=== PATIENT | female | born 1975 | race African-American/Black ===

== ENCOUNTER 2020-02-12 01:42 | Day surgery (SDC) | payer OTHER, SELFPAY ==
[2020-02-02 13:53] VITALS: BMI 34.2
[2020-02-12] VITALS (9 sets, daily range): BP systolic 103–140; BP diastolic 64–82; PULSE 65–77; RESP 14–20; TEMP 36.2–36.5; O2SAT 95–100
--- NOTE | 2020-02-12 06:02 | ECG_ITS ---
Measurements Intervals [place] Rate: 59 P: 58 AR: 163 QRS: -4 QRSD: 91 T: 13 QT: 401 QTc: 398 Interpretive Statements SINUS BRADYCARDIA POSSIBLE LEFT ATRIAL ENLARGEMENT DELAYED PRECORDIAL R/S TRANSITION BORDERLINE ECG Electronically Signed On 02-12-2020 9:52:22 CDT by Javon Curry D.O.
[2020-02-12] MEDS: LACTATED RINGERS 500 ML IV CONT (09:00)
[2020-02-12 09:41] LABS: Urine Cotinine NEGATIVE
--- NOTE | 2020-02-12 09:51 | WPDANESEPPF ---
Anes - Initial Pre Proc Eval Procedure: Operation Date: 02/12/20 10:30 Proposed Procedures p Right Breast Reduction - Luis King MD s Left Mastopexy - Luis King MD Date/Time: 02/12/20 09:51 Surgeon: Luis King MD Pre Op Diagnosis: Breast ptosis Patient Data Age: 44 Gender: F Height: 5 ft 9 in Weight: 102.4 kg Last Vital Signs Temp 97.1 F L 02/12/20 08:34 Pulse 65 02/12/20 08:34 Resp 18 02/12/20 08:34 BP 131/82 02/12/20 08:34 Pulse Ox 100 02/12/20 08:34 Allergies Allergy/AdvReac Type Severity Reaction Status Date / Time No Known Allergies Allergy Verified 02/12/20 08:50 Home Medications Medication Instructions Recorded Confirmed Type atenolol 25 mg tablet 25 mg PO DAILY 12/22/19 02/12/20 History levothyroxine 50 mcg tablet 50 mcg PO DAILY 12/22/19 02/12/20 History norethindrone 1 mg-ethinyl 1 tablet PO DAILY 12/22/19 02/12/20 History estradiol 20 mcg (21)-iron 75 mg (7) tablet docusate sodium 100 mg capsule 100 mg PO DAILY #14 cap 02/03/20 02/12/20 Rx ondansetron HCl 4 mg tablet 4 mg PO Q8H #28 tablet 02/03/20 02/12/20 Rx hydrocodone 5 mg-acetaminophen 325 1 tablet PO Q6H PRN #15 tablet 02/04/20 02/12/20 Rx mg tablet Laboratory Tests 02/12/20 08:36 Cotinine Negative Patient hx anesthesia problems: none Family hx anesthesia problems: none PMFSH Past Medical History Medical History (Updated 02/12/20 @ 09:48 by Rio Davalos MD) Hypertension Hypothyroidism Social History Social History Smoking status: Former smoker Alcohol intake: current Gender identity (if verbalized by the patient): Female Anes - Eval Final PreProcedure Day of Procedure 02/12/20 09:51 Patient weight: overweight Heart: regular rate and rhythm Lungs: clear to auscultation Airway: Mallampati scale class II Neurological: alert and oriented Last oral intake: >/= 8 hours ASA classification: II Emergent: no Anesthetic plan: proceed Anesthesia type and monitoring: general LMA and standard monitoring Informed Consent: The patient's anesthetic plan and its attendant risks and benefits were discussed with the patient/family/POA. Questions were solicited and answers provided to the satisfaction of the patient/family/POA.
[2020-02-12] MEDS: LACTATED RINGERS 1,000 ML 30 ML IV CONT ×2 (10:00→14:02)
--- NOTE | 2020-02-12 10:25 | WPDHPUPDATE1 ---
History and Physical Update Update Date/Time: 02/12/20 10:25 History and Physical has been reviewed, including an updated exam of the patient. There are NO changes in the patient's condition. Risks, benefits, and alternatives have been discussed and questions answered. Patient agrees to proceed with procedure.
[2020-02-12] MEDS: ceFAZolin 2 GM/D5W 50 ML 2 GM/50 ML BAG IVPB (11:02)
--- NOTE | 2020-02-12 14:03 | PM.PROC ---
Procedure Note - Detailed Date of procedure: 02/12/20 Pre-op diagnosis: Breast ptosis Breast asymmetry Post-op diagnosis: same Procedure performed: 1. Right breast reduction 2. Left breast mastopexy Description of procedure: She is here today for right breast reduction /left mastopexy. Previously and again today the risks, benefits, alternatives were discussed in extensive detail. I wanted her to be very realistic about the risks involved as well as expectations. She understands she will never have symmetry given the significant asymmetry she currently has. I explained that she will still have some residual areola at specially on the left side as her areola represents a significant portion of the breast. We discussed aftercare and what to monitor for. She understands we can never guarantee final breast size and there will always be asymmetry. I was very upfront and honest about the risks of sensation change and even nipple loss (). Made sure answered all of her questions to her satisfaction today and consent was obtained. She was marked in the preoperative holding area with their verification. The patient was taken to the operating room placed supine on the operating table. Anesthesia was provided by anesthesiology. She was prepped and draped in a standard sterile fashion. A surgical time-out was taken. Stab incisions were made and I tumessed with a tumescent solution. I marked out the nipple-areolar complex at 42 mm. I then de-epithelialized the pedicle. The pedicle was well left well more than 2 cm in thickness. I then on the right removed the inferior portion of the breast as well as the central keel to get shape based on preoperative planning. On the left I simply tailor tacked. At this point copiously irrigated with saline solution and verified a strict hemostasis. I reapproximated the pillars using a 2-0 PDS as well as along the IMF. I tailor tacked the breast into place with loree. She was placed in a sitting position. I verified the nipple-areolar complex position based on preoperative markings, intraoperative measurements, and observation which were in full agreement. On the right lateral breast there is a slight asymmetry in order to get as close to symmetry as possibly did a very low volume of S.A.F.E. liposuction to a good contour. While sitting nipple-areolar complex was marked at 42 mm in size. I then placed supine and de-epithelialized this. A left breast I did remove the skin of that central and inferior aspect and closed as below. Nipple-areolar complex was inset with 3-0 Monocryl. I closed the vertical incision with 3-0 Monocryl in the IMF with 3-0 stratafix. Then everything was closed using a running subcuticular 4-0 Monocryl followed by Steri-Strips. Prior to final closure I did place her in a sitting position and verify symmetry between the 2 sides. A dressing was placed followed by surgical bra. Patient was awoke and taken to PACU without difficulty. All instrument sponge counts were correct at the end of the case. Anesthesia: GLMA Surgeon: Luis King MD Drains: No Packing: No Pathology: yes (Left breast tissue) Complications: No immediate complications Condition: stable Disposition: PACU Findings: Bilateral inverted T superior medial pedicle Right reduction: 822 g.
== END 2020-02-12 16:05 | disposition home or self-care (01) ==
PROVIDERS: Visit Provider Surgery Plastic and Reconstructive Surgery
PROC: 0HBV0ZZ Excision of Bilateral Breast, Open Approach (ICD-10-PCS; CPT 19318; principal; 2020-02-12 10:30)
PROC: (CPT 19316; 2020-02-12 10:30)
DX: Z41.1 Encounter for cosmetic surgery (principal); N64.81 Ptosis of breast; N64.89 Other specified disorders of breast; N60.31 Fibrosclerosis of right breast; N60.41 Mammary duct ectasia of right breast; N60.21 Fibroadenosis of right breast; I10 Essential (primary) hypertension; E03.9 Hypothyroidism, unspecified; Z80.3 Family history of malignant neoplasm of breast; Z87.891 Personal history of nicotine dependence
CPT/HCPCS: 19318; 19316; 36415; 80307; 88305; 93005; J0171; J0690; J1100; J1170; J2250; J2590; J2704; J3010; J7120

== ENCOUNTER 2023-01-23 08:48 | Outpatient (CLI) | payer BC, SELFPAY ==
--- NOTE | ~2023-01-23 | US_ITS ---
Pelvic ultrasound. Clinical History: IUD Technique: Realtime transabdominal and transvaginal scanning of the pelvis was performed. Color flow Doppler and Doppler spectral analysis were performed. Findings: The uterus is anteverted. The endometrial stripe has a thickness of 5 mm. IUD is in satisf actory position. No focal mass is identified. The right ovary measures 2.1 x 1.1 x 1.2 cm. No significant right ovarian or adnexal mass is seen. V ascular flow present in the right ovary. The left ovary is not visualized. No significant left ovarian or adnexal mass is seen. There is no evidence of free fluid in the cul de sac. Impression: IUD in satisfactory position. Left ovary not seen. Reviewed, dictated and finalized at [facility]. ON TIPPER Impression: IUD in satisfactory position. Left ovary not seen.
== END 2023-01-23 08:49 | disposition home or self-care (01) ==
PROVIDERS: PCP Family Medicine; Visit Provider Obstetrics & Gynecology
DX: N92.1 Excessive and frequent menstruation with irregular cycle (principal); Z97.5 Presence of (intrauterine) contraceptive device
CPT/HCPCS: 36415; 76830; 76856; 83001

== ENCOUNTER 2024-12-12 15:01 | Outpatient (CLI) | payer BC, SELFPAY ==
--- NOTE | ~2024-12-12 | US_ITS ---
US pelvic complete w TV Ordering provider: Shruti Lucas APRN History: . N93.9 - Abnormal uterine and vaginal bleeding, unspecified . Comparison: None. Technique: Transabdominal and endovaginal ultrasound of the pelvis (Doppler ultrasound interrogation techniques used as needed for this exam.) FINDINGS: CERVIX: Normal. UTERUS: Measures 6.6x 3.8x 5.1 cm in length which is within normal limits and is anteverted. No myom etrial masses. ENDOMETRIUM: Normal in thickness measuring 3.8 mm. No endometrial masses, cysts or fluid. CUL DE SAC: No free fluid. RIGHT OVARY: Normal in size measuring 3.1x 1.2x 1.9 cm. Normal echotexture. Doppler vascular flow pre sent. Simple Cyst is seen measuring 1.1 x 1.4 x 1.3 cm. LEFT OVARY: Normal in size measuring 2.7x 1.3x 1.4 cm. Normal echotexture. Doppler vascular flow pres ent. Simple cyst is seen measuring 1.3 x 0.9 x 0.9 cm. ADNEXA: Normal. No mass. IMPRESSION: Bilateral ovarian cysts. Otherwise, normal pelvic ultrasound. Reviewed, dictated and finalized at location [facility]
== END 2024-12-12 15:02 | disposition home or self-care (01) ==
LOC: MICIMG 15:01
PROVIDERS: PCP Nurse Practitioner Family; Visit Provider Nurse Practitioner Family
DX: N93.9 Abnormal uterine and vaginal bleeding, unspecified (principal); N83.201 Unspecified ovarian cyst, right side; N83.202 Unspecified ovarian cyst, left side
CPT/HCPCS: 76830; 76856

== ENCOUNTER 2025-02-13 11:11 | Outpatient (CLI) | payer BC, SELFPAY ==
--- NOTE | 2025-02-13 11:21 | ECG_ITS ---
Test Date: 2025-02-13 11:47:41 Measurements Intervals [place] Rate: 73 P: 38 RI: 172 QRS: -5 QRSD: 88 T: 14 QT: 385 QTc: 424 Interpretive Statements SINUS RHYTHM No previous ECG available for comparison Electronically Signed On 02-13-2025 18:36:05 CDT by Dm Black M.D.
--- OUTSIDE RECORDS SUMMARY | 2025-02-13 12:34 | XMS_ITS | Referral Summary ---
Author Organization [facility] Address [address] [place] [address] Care Team Providers Care Internet Application Developer Name Role Phone Fuad Torres MD Unavailable [phone] Radha Tejada DNP Primary Care Provi vicki Encounters Date Type Department Care Team Description 01/21/2025 11:30 AM WATCH DIAL MAKER Office Visit [address] [place] [phone] Radha Tejada DNP Essential hypertension (Primary Dx); Hypothyroidism (acquired); Encounter for vitamin deficiency screening; Class 2 obesity due to excess calories without serious comorbidity with body mass index (BMI) of 36.0 to 36.9 in adult; Encounter for long-term (current) use of medications 01/19/2025 Results Follow-Up [address] [place] [phone] Radha Tejada DNP 01/19/2025 Results Follow-Up [address] [place] [phone] Radha Tejada DNP 01/17/2025 7:30 AM WATCH DIAL MAKER Lab [facility] [address] [place] [id number] Hypothyroidism (acquired) 01/17/2025 8:00 AM WATCH DIAL MAKER - 01/17/2025 11:59 PM WATCH DIAL MAKER Hospital Encounter [facility] Breast Imaging [address] [place] [address] Screening mammogram, encounter for Discharge Disposition: Discharge to home or self care from Last 3 Months Allergies No known active allergies Medications norethindrone (MICRONOR) 0.35 mg tabletIndications : Contraception Take 1 tablet (0.35 mg total) by mouth daily Active levothyroxine (SYNTHROID) 50 mcg tabletIndications :Hypothyroidism (acquired) Take 1 tablet (50 mcg total) by mouth daily 90 tablet 3 4 10/10/20 25 Active hydroCHLOROthiazi de 12.5 mg tabletIndications :Essential hypertension Take 1 tablet (12.5 mg total) by mouth daily 90 tablet 4 4 10/10/20 25 Active fluticasone propionate (FLONASE) 50 mcg/actuation nasal spray Administer 2 sprays into each nostril daily 3 each 4 4 Active Active Problems Problem Noted Date Diagnosed Date Class 2 obesity due to exces s calories without serious comorbidity with body mass index (BMI) of 36.0 to 36.9 in adult 10/10/2024 Assessment & Plan (10/13/2024 10:28 AM WATCH DIAL MAKER): Your BMI is elevated. Try to cut back on calories. Most people should eat between 9231-2681 calories to lose weight. Goal BMI is less than 30. A healthy BMI is considered between 19-25. Decrease your carbohydrate intake to less than 150 grams per day if possible and increase protein to help with hunger. Increase activity to 30 min 4-5 days a week of moderate aerobic activity and add strength training 2 times weekly, as tolerated. Consider using Sage[employer] kiley to track diet and exercise habits daily. Consider trying Weight Watcher program to make dietary changes. Visit www.dietaryguidelines.gov, www.myplate.gov, or www.health.gov for more dietary information and tips. If you need further help with weight loss please let me know. I would be happy to help. Chronic constipation 09/05/2019 Assessment & Plan (10/13/2024 10:26 AM WATCH DIAL MAKER): Chronic and stable Continue uccd-ysw-lsopysd medications as needed Essential hypertension 09/05/2019 Assessment & Plan (01/21/2025 12:06 PM WATCH DIAL MAKER): Chronic and stable Continue hydrochlorothiazide 12.5 mg daily Goal blood pressure is less than 140/90. Recommend DASH diet to reduce sodium/salt in diet. Recommend 150 min of moderate aerobic exercise weekly as tolerated. Visit www.heart.org for more information on diet and lifestyle to improve blood pressure for heart health. F/u in 4 months Assessment & Plan (10/13/2024 10:28 AM WATCH DIAL MAKER): Chronic and stable Start hydrochlorothiazide 12.5 mg daily Medication and side effects reviewed Record daily blood pressures Goal blood pressure is less than 140/90. Recommend DASH diet to reduce sodium/salt in diet. Recommend 150 min of moderate aerobic exercise weekly as tolerated. Visit www.heart.org for more information on diet and lifestyle to improve blood pressure for heart health. F/u in 1 month Hypothyroidism (acquired) 05/07/2019 Assessment & Plan (01/21/2025 12:07 PM WATCH DIAL MAKER): Chronic and stable Continue Levothyroxine 50 mcg Follow-up in 4 months Assessment & Plan (10/13/2024 10:28 AM WATCH DIAL MAKER): Levothyroxine 50 mcg ordered Labs ordered Follow-up in 1 month Immunizations Immunization Administration Dates Next Due DTP 06/05/1980, 6,05/21/1974,04/09,02/21/1974 Influenza, Quadrivalent, Spl it, Preservative Free, Intramuscular 10/03/2022,09/28/2020 Influenza, Trivalent, Preser vative Free, Intramuscular 10/10/2024 Influenza, Unspecified 08/26/2023 Measles / Rubella 06/29/1976 Mumps 06/05/1980 OPV 06/05/1980, 6,05/21/1974,04/09,02/21/1974 OPV, Unspecified 06/05/1980, 6,05/21/1974,04/09,02/21/1974 Tdap 09/28/2020,04/27/2010 Social History Tobacco Use Types Packs/Day Years Used Date Smoking Tobacco: Never Cigarettes Smokeless Tobacco: Never AUDIT-C Answer Date Recorded Q1: How often do you have a drink containing alc ohol? Monthly or less 10/10/2024 Q2: How many drinks containi ng alcohol do you have on a typical day when you are drinking? 3 or 4 10/10/2024 Q3: How often do you have si x or more drinks on one occasion? Never 10/10/2024 PHQ-2 Answer Date Recorded PHQ-2 Total Score (If total score is 3 or more points, staff should administer the PHQ-9) 0 10/10/2024 Comments No Sex and Gender Information Value Date Recorded Sex Assigned at Not on file Legal Sex Female 6:17 PM WATCH DIAL MAKER Gender Identity Female 01/08/2024 6:23 AM WATCH DIAL MAKER Sexual Orientation Not on file Last Filed Vital Signs Vital Sign Reading Time Taken Comments Blood Pressure 122/80 01/21/2025 11:20 AM WATCH DIAL MAKER Pulse 96 01/21/2025 11:20 AM WATCH DIAL MAKER Temperature 36.8 C (98.2 F) 10/10/2024 11:29 AM WATCH DIAL MAKER Respiratory Rate 18 01/21/2025 11:20 AM WATCH DIAL MAKER Oxygen Saturation 99% 01/21/2025 11:20 AM WATCH DIAL MAKER Inhaled Oxygen Concentration - - Weight 112.5 kg (248 lb) 01/21/2025 11:20 AM WATCH DIAL MAKER Height 175.3 cm (5' 9 ) 01/21/2025 11:20 AM WATCH DIAL MAKER Body Mass Index 36.62 01/21/2025 11:20 AM WATCH DIAL MAKER Plan of Treatment Not on file Procedures Procedure Name Priority Date/Time Associated Diagnosis Comments TSH Routine 01/17/2025 9:04 AM WATCH DIAL MAKER Hypothyroidism (acquired) T4, FREE Routine 01/17/2025 9:04 AM WATCH DIAL MAKER Hypothyroidism (acquired) SCREENING MAMMOGRAM BILATERAL W VALERIO Schedule Routine, Read Routine (OP Routine) 01/17/2025 8:10 AM WATCH DIAL MAKER Screening mammogram, encounter for from Last 3 Months Results * TSH (01/17/2025 9:04 AM WATCH DIAL MAKER) Thyroid Stimulating Hormone 2.07 0.30 - 4.20 mcIUnit/mL Blood 01/17/2025 9:04 AM WATCH DIAL MAKER 01/17/2025 9:36 AM WATCH DIAL MAKER [facility] S Final Result Performing Organization Address City/[facility] Co de Phone Number ALVIN [address] [place] [employer] [place] [address] * T4, free (01/17/2025 9:04 AM WATCH DIAL MAKER) Free T4 1.29 0.90 - 1.70 ng/dL Blood 01/17/2025 9:04 AM WATCH DIAL MAKER 01/17/2025 9:36 AM WATCH DIAL MAKER [facility] ORDERABLE S Final Result Performing Organization Address [facility] de Phone Number [id number] [place] [address] * Screening Mammogram Bilateral W Valerio (01/17/2025 8:10 AM WATCH DIAL MAKER) Anatomical Region Laterality Modality Breast Bilateral Mammography Impressions 01/19/2025 8:01 AM WATCH DIAL MAKER BI-RADS ATLAS category (overall): 2 - Benign There is no mammographic evidence of malignancy. A 1 year screening mammogram is recommended. The patient has been or will be contacted. We recommend annual screening mammography for women at average risk of breast cancer beginning at age 40, based on guidelines of the [employer] (ACR Practice Parameter for the Performance of Screening and Diagnostic Mammography) and [employer]. For women with and elevated risk of breast cancer, please refer to the ACR Practice Parameter for specific screening recommendations. The patient will be entered into a reminder system with a target due date of 1 year for her next screening exam. Narrative 01/19/2025 8:01 AM WATCH DIAL MAKER Screening Mammogram Bilateral W Valerio: 01/17/25 The study was acquired using full field digital technology and interpreted from soft copy. 2D digital mammographic views, as well as 3D digital tomosynthesis were performed in the CC and MLO projections. CLINICAL: Screening mammogram, encounter for. No relevant medical history has been documented for this patient. History of breast cancer in Mother. COMPARISONS: 01/05/2024 Screening Mammogram Bilateral W Valerio 12/22/2022 Screening Mammogram Bilateral W Valerio 12/19/2021 Screening Mammogram Bilateral W Valerio 09/30/2020 Screening Mammogram Bilateral W Valerio BREAST TISSUE: There are scattered areas of fibroglandular density. FINDINGS: There are postoperative changes of bilateral reduction mammoplasty. No suspicious masses, suspicious calcifications, or other suspicious findings are seen within either breast. There has been no suspicious change. us Self Screening Mammogram IMG MAMMO PROCEDURES Fi nal Result from Last 3 Months Insurance [facility] Care Teams Internet Application Developer Relationship Specialty Start Date End Date Fuad Torres MD [address] [phone] PCP - children's service worker Obstetrics and Gynecology 12/13/22 Radha Tejada DNP [address] [address] PCP - General Family Medicine 10/10/24
--- OUTSIDE RECORDS SUMMARY | 2025-02-13 12:34 | XMS_ITS | Encounter Summary ---
Author Organization [facility] Address [address] [place] [address] Care Team Providers Care Instructor Robotics Name Role Phone Fuad Torres MD Unavailable [phone] Radha Tejada DNP Primary Care Provi vicki Encounter Details Date Type Department Care Team (Late st Contact Info) Description 01/19/2025 Results Follow-Up [facility] Family Medicine [address] [place] [address] [place] [phone] [address] Social History Tobacco Use Types Packs/Day Years [...] on file Legal Sex Female 6:17 PM MD PHYSICIAN DERMATOLOGIST Gender Identity Female 01/08/2024 6:23 AM MD PHYSICIAN DERMATOLOGIST Sexual Orientation Not on file documented as of this encounter Plan of Treatment Not on file documented as of this encounter Visit Diagnoses Not on filedocumented in this encounter Care Teams Instructor Robotics Relationship Specialty Start Date End Date Fuad Torres MD [address] [facility] [address] [address] PCP - dragline operator helper Obstetrics and Gynecology 12/13/22 Radha Tejada DNP [address] [facility] [address] [place] [address] [place] [address] PCP - General Family Medicine 10/10/24 documented as of this encounter
--- OUTSIDE RECORDS SUMMARY | 2025-02-13 12:34 | XMS_ITS | Clinical Summary ---
Author Organization [facility] Address [address] [place] [address] Care Team Providers Care Emergency Management Coordinator Name Role Phone Fuad Torres MD Unavailable [phone] Radha Tejada [facility] Primary Care Provi vicki Allergies No known active allergies Medications norethindrone [...] 10/10/2024 Assessment & Plan (10/13/2024 10:28 AM BOWLING BALL MOLD ASSEMBLER): Your BMI is elevated. Try to cut back on calories. Most people should eat between 6447-8822 calories to lose weight. Goal BMI is less than 30. A healthy BMI is considered between 19-25. Decrease your carbohydrate intake to less than 150 grams per day if possible and increase protein to help with hunger. Increase activity to 30 min 4-5 days a week of moderate aerobic activity and add strength training 2 times weekly, as tolerated. Consider using [employer] kiley to track diet and exercise habits daily. Consider trying Weight Watcher program to make dietary changes. Visit www.dietaryguidelines.gov, www.myplate.gov, or www.health.gov for more dietary information and tips. If you need further help with weight loss please let me know. I would be happy to help. Chronic constipation 09/05/2019 Assessment & Plan (10/13/2024 10:26 AM BOWLING BALL MOLD ASSEMBLER): Chronic and stable Continue [id number] medications as needed Essential hypertension 09/05/2019 Assessment & Plan (01/21/2025 12:06 PM BOWLING BALL MOLD ASSEMBLER): Chronic and stable Continue hydrochlorothiazide 12.5 mg daily Goal blood pressure is less than 140/90. Recommend DASH diet to reduce sodium/salt in diet. Recommend 150 min of moderate aerobic exercise weekly as tolerated. Visit www.heart.org for more information on diet and lifestyle to improve blood pressure for heart health. F/u in 4 months Assessment & Plan (10/13/2024 10:28 AM BOWLING BALL MOLD ASSEMBLER): Chronic and stable Start hydrochlorothiazide 12.5 mg [...] 05/07/2019 Assessment & Plan (01/21/2025 12:07 PM BOWLING BALL MOLD ASSEMBLER): Chronic and stable Continue Levothyroxine 50 mcg Follow-up in 4 months Assessment & Plan (10/13/2024 10:28 AM BOWLING BALL MOLD ASSEMBLER): Levothyroxine 50 mcg ordered Labs ordered Follow-up in 1 month Encounters Date Type Department Care Team Description 01/21/2025 11:30 AM BOWLING BALL MOLD ASSEMBLER Office Visit [address] [address] Radha Tejada DNP Essential hypertension (Primary Dx); Hypothyroidism (acquired); Encounter for vitamin deficiency screening; Class 2 obesity due to excess calories without serious comorbidity with body mass index (BMI) of 36.0 to 36.9 in adult; Encounter for long-term (current) use of medications 01/19/2025 Results Follow-Up [address] [address] Radha Tejada DNP 01/19/2025 Results Follow-Up [address] [address] Radha Tejada DNP 01/17/2025 8:00 AM BOWLING BALL MOLD ASSEMBLER - 01/17/2025 11:59 PM BOWLING BALL MOLD ASSEMBLER Hospital Encounter [facility] Breast Imaging [address] [place] [address] Screening mammogram, encounter for Discharge Disposition: Discharge to home or self care 01/17/2025 7:30 AM BOWLING BALL MOLD ASSEMBLER Lab [facility] Lab [address] [place] [address] Hypothyroidism (acquired) from Last 3 Months Immunizations Immunization Administration Dates Next Due DTP 06/05/1980, 6,05/21/1974,04/09,02/21/1974 Influenza, Quadrivalent, Spl it, Preservative Free, Intramuscular 10/03/2022,09/28/2020 Influenza, Trivalent, Preser vative Free, Intramuscular 10/10/2024 Influenza, Unspecified 08/26/2023 Measles / Rubella 06/29/1976 Mumps 06/05/1980 OPV 06/05/1980, 6,05/21/1974,04/09,02/21/1974 OPV, Unspecified 06/05/1980, 6,05/21/1974,04/09,02/21/1974 Tdap 09/28/2020,04/27/2010 Surgical History Surgery Date Site/Laterality Comments REDUCTION MAMMAPLASTY 11/26/2019 - 11/25/2020 Bilateral Medical History Medical History Date Comments Thyroid disease Hypothyroidism (acquired) Family History Medical History Relation Name Comments Hypertension Father Daniel Pringle Breast cancer Mother Gaby Pringle Cancer Mother Gaby Pringle Relation Name Status Comments Father Daniel Pringle Mother Gaby Pringle Social History Tobacco Use Types Packs/Day Years [...] on file Legal Sex Female 6:17 PM BOWLING BALL MOLD ASSEMBLER Gender Identity Female 01/08/2024 6:23 AM BOWLING BALL MOLD ASSEMBLER Sexual Orientation Not on file Obstetrics History Para Term AB IAB SAB Ectopic Multiple Livin g Live Births 0 0 0 0 0 0 0 0 0 0 0 Last Filed Vital Signs Vital Sign Reading Time Taken Comments Blood Pressure 122/80 01/21/2025 11:20 AM BOWLING BALL MOLD ASSEMBLER Pulse 96 01/21/2025 11:20 AM BOWLING BALL MOLD ASSEMBLER Temperature 36.8 C (98.2 F) 10/10/2024 11:29 AM BOWLING BALL MOLD ASSEMBLER Respiratory Rate 18 01/21/2025 11:20 AM BOWLING BALL MOLD ASSEMBLER Oxygen Saturation 99% 01/21/2025 11:20 AM BOWLING BALL MOLD ASSEMBLER Inhaled Oxygen Concentration - - Weight 112.5 kg (248 lb) 01/21/2025 11:20 AM BOWLING BALL MOLD ASSEMBLER Height 175.3 cm (5' 9 ) 01/21/2025 11:20 AM BOWLING BALL MOLD ASSEMBLER Body Mass Index 36.62 01/21/2025 11:20 AM BOWLING BALL MOLD ASSEMBLER Plan of Treatment Health Maintenance Due Date Last Done Comments Cervical Cancer Screening 1973 Colon Cancer Screening-Colonoscopy 1973 Hepatitis C Screening 1973 Hepatitis B Screening 1991 Regular Well Visit/Exam 18-64 1991 Zoster Vaccine (1 of 2) 2023 Covid-19 Vaccine (4 - season) 2024 11/17/2021, 01/25/2021, 01/04/2021 Depression Screening 10/10/2025 10/10/2024 Breast Cancer Screening-Mammogram 01/17/2026 01/17/2025, 01/05/2024, 12/22/2022, Additional history exists DTaP/Tdap/Td Vaccine (8 - Td or Tdap) 09/28/2030 09/28/2020, 04/27/2010, 06/05/1980, Additional history exists Influenza Vaccine Completed 10/10/2024, , 10/03/2022, Additional history exists Pneumococcal vaccine <65 Aged Out No longer eligible based on patient's age to complete this topic Procedures Procedure Name Priority Date/Time Associated Diagnosis Comments TSH Routine 01/17/2025 9:04 AM BOWLING BALL MOLD ASSEMBLER Hypothyroidism (acquired) T4, FREE Routine 01/17/2025 9:04 AM BOWLING BALL MOLD ASSEMBLER Hypothyroidism (acquired) SCREENING MAMMOGRAM BILATERAL W VALERIO Schedule Routine, Read Routine (OP Routine) 01/17/2025 8:10 AM BOWLING BALL MOLD ASSEMBLER Screening mammogram, encounter for from Last 3 Months Results * TSH (01/17/2025 9:04 AM BOWLING BALL MOLD ASSEMBLER) Thyroid Stimulating Hormone 2.07 0.30 - 4.20 mcIUnit/mL Blood 01/17/2025 9:04 AM BOWLING BALL MOLD ASSEMBLER 01/17/2025 9:36 AM BOWLING BALL MOLD ASSEMBLER us Radha Tejada [facility] LAB BLOOD ORDERABLE S Final Result [facility] [address] [facility] Department [place] [address] * T4, free (01/17/2025 9:04 AM BOWLING BALL MOLD ASSEMBLER) Free T4 1.29 0.90 - 1.70 ng/dL Blood 01/17/2025 9:04 AM BOWLING BALL MOLD ASSEMBLER 01/17/2025 9:36 AM BOWLING BALL MOLD ASSEMBLER us Radha Tejada DNP LAB BLOOD ORDERABLE S Final Result [facility] [address] [facility] Department [place] [address] * Screening Mammogram Bilateral W Valerio (01/17/2025 8:10 AM BOWLING BALL MOLD ASSEMBLER) Anatomical Region Laterality Modality Breast Bilateral Mammography Impressions 01/19/2025 8:01 AM BOWLING BALL MOLD ASSEMBLER BI-RADS ATLAS category (overall): 2 - Benign There is no mammographic evidence of malignancy. A 1 year screening mammogram is recommended. The patient has been or will be contacted. We recommend annual screening mammography for women at average risk of breast cancer beginning at age 40, based on guidelines of the [employer] (ACR Practice Parameter for the Performance of Screening and Diagnostic Mammography) and [employer]. For women with and elevated risk of breast cancer, please refer to the ACR Practice Parameter for specific screening recommendations. The patient will be entered into a reminder system with a target due date of 1 year for her next screening exam. Narrative 01/19/2025 8:01 AM BOWLING BALL MOLD ASSEMBLER Screening Mammogram Bilateral W Valerio: 01/17/25 The [...] nal Result from Last 3 Months Insurance [facility] Care Teams Emergency Management Coordinator Relationship Specialty Start Date End Date Fuad Torres MD [address] [address] PCP - leather grader Obstetrics and Gynecology 12/13/22 Radha Tejada DNP [address] [facility] [address] [address] PCP - General Family Medicine 10/10/24
--- OUTSIDE RECORDS SUMMARY | 2025-02-13 12:34 | XMS_ITS | Encounter Summary ---
Author Organization [facility] Healthcare Address [address] [place] [address] Care Team Providers Care Access Director Name Role Phone Fuad Torres MD Unavailable [phone] Radha Tejada DNP Primary Care Provi vicki Encounter Details Date Type Department Care Team (Late st Contact Info) Description 01/19/2025 Results Follow-Up [facility] Medical Group Family Medicine [address] [place] [address] [place] [phone] [address] Social History Tobacco Use Types [...] on file Legal Sex Female 6:17 PM COMPUTER CONSOLE OPERATOR Gender Identity Female 01/08/2024 6:23 AM COMPUTER CONSOLE OPERATOR Sexual Orientation Not on file documented as of this encounter Plan of Treatment Not on file documented as of this encounter Visit Diagnoses Not on filedocumented in this encounter Care Teams Access Director Relationship Specialty Start Date End Date Fuad Torres MD [address] [facility] [address] [address] PCP - marine structural designer Obstetrics and Gynecology 12/13/22 Radha Tejada DNP [address] [facility] [address] [place] [address] [place] [address] PCP - General Family Medicine 10/10/24 documented as of this encounter
--- OUTSIDE RECORDS SUMMARY | 2025-02-13 12:34 | XMS_ITS | Clinical Summary ---
Author Organization [facility] Address [address] [place] [address] Care Team Providers Care Programs Director Name Role Phone Rachael Kwong MD Primary Care Provider + Allergies No known active allergies Medications levothyroxine (SYNTHROID) 50 MCG tabletIndication s:Hypothyroidism (acquired) TAKE 1 TABLET(50 MCG) BY MOUTH DAILY 90 tablet 3 10/04/2023 Active Drospirenone (SLYND OR) Take 1 tablet by mouth daily. Active Active Problems Problem Noted Date Diagnosed Date Essential hypertension 09/05/2019 Family history of breast cancer in mother 2018 Chronic constipation 09/05/2019 Hypothyroidism (acquired) 09/05/2019 Immunizations Name Administration Dates Next Due Dtp 06/05/1980, 6,05/21/1974, 974,02/21/1974 Fluzone 6 Months+ Quad (0.5 mL Prefilled Syringe) 10/03/2022,09/28/2020 Measles/Rubella 06/29/1976 Mumps 06/05/1980 Opv 06/05/1980, 6,05/21/1974, 974,02/21/1974 Tdap (Adacel) 09/28/2020 Tdap (Generic) 04/27/2010 Family History Medical History Relation Comments Hypertension Father Breast Cancer Maternal Aunt Breast Cancer Mother Cancer Mother Relation Status Comments Father Maternal Aunt Mother Social History Tobacco Use Types Packs/Day Years Used Date Smoking Tobacco: Never Passive Smoke Exposure: Never Smokeless Tobacco: Never Tobacco Cessation:Counseling Given: No Alcohol Use Standard Drinks/Week Comments Yes 0 (1 standard drink = 0.6 oz pur e alcohol) ocasionally AUDIT-C Answer Date Recorded Frequency of Alcohol Consumption Never 09/04/2019 Average Number of Drinks Not on file 019 Frequency of Binge Drinking Not on file 08/26 PHQ-2 Answer Date Recorded Patient Health Questionnaire-2 Score 0 06/03/2024 Comments No Sex and Gender Information Value Date Recorded Sex Assigned at Not on file Legal Sex Female 6:54 PM CDT Gender Identity Not on file Sexual Orientation Not on file Last Filed Vital Signs Vital Sign Reading Time Taken Comments Blood Pressure 138/80 06/03/2024 8:35 AM CDT Pulse 76 06/03/2024 8:09 AM CDT Temperature 37.1 C (98.8 F) 06/03/2024 8:09 AM CDT Respiratory Rate 16 10/03/2022 8:36 AM MATERIAL CLERK Oxygen Saturation 100% 06/03/2024 8:09 AM CDT Inhaled Oxygen Concentration - - Weight 101.2 kg (223 lb) 06/03/2024 8:09 AM CDT Height 172.7 cm (5' 8 ) 06/03/2024 8:09 AM CDT Body Mass Index 33.91 06/03/2024 8:09 AM CDT Plan of Treatment Upcoming Encounters Date Type Department Care Team (Late st Contact Info) Description 06/04/2025 7:00 AM CDT Office Visit [facility] Medical Group [facility] Medicine [address] [address] Oleg Moran MD Health Maintenance Due Date Last Done Comments Hepatitis B Vaccines (1 of 3 - 19+ 3-dose series) 1992 Cervical Cancer Screening Pap with HPV Testing (Age 30 to 64) Every 5 Years 2003 Zoster Vaccines (1 of 2) 2023 COVID-19 Vaccine ( season) 2024 11/17/2021, 01/25/2021, 01/04/2021 Influenza Adult (#1) 2024 10/03/2022, 09/28/20 20 Cervical Cancer Screening Pap Smear (Age 30 to 64) Every 3 Years 09/27/2024 09/27/2021 Cervical Cancer Screening with HPV 09/27/2024 PHQ-2 (Physician [place]) 11/26/2024 06/03/2024 Annual Physical 06/03/2025 06/03/2024, 1106/2022, 09/28/2020, Additional history exists Mammogram Screening 01/05/2026 01/05/2024, 12/22/2022, 12/19/2021, Additional history exists Colorectal Cancer Screening Colonoscopy (10 Years) 02/04/2030 02/05/2020 DTaP, Tdap and Td Vaccines (3 - Td or Tdap) 09/28/2030 09/28/2020, 04/27/2010, 06/05/1980, Additional history exists Hepatitis C Completed 10/13/2020 Meningococcal B Vaccine Aged Out No l onger eligible based on patient's age to complete this topic Meningococcal Vaccine Aged Out No [place] eligible based on patient's age to complete this topic Pneumococcal Vaccine: Pediatrics (0 to 5 Years) and At-Risk Patients (6 to 64 Years) Aged Out No longer eligible based on patient's age to complete this topic RSV Immunizations Under 20 Months Aged Out No longer eligible based on patient's age to complete this topic Procedures Procedure Name Priority Date/Time Associated Diagnosis Comments MAMMOGRAM GENERIC (SCAN ORDER) Routine 12/19/2021 OUTSIDE CYTOPATH CERV/VAG INTERPRET (PAP) (SCAN ORDER) 09/27/2021 HEPATITIS C ANTIBODY Routine 10/13/2020 11:00 AM MATERIAL CLERK Need for hepatitis C screening test from Last 3 Months or Most Recently Relevant to Health Maintenance Results * MAMMOGRAM (12/19/2021) Anatomical Region Laterality Modality Other us [facility] Scanned SCANNING Final Resu lt * PAP SMEAR (09/27/2021) 09/27/2021 us [facility] Scanned SCANNING Final Resu lt * HEPATITIS C ANTIBODY (10/13/2020 11:00 AM MATERIAL CLERK) HEPATITIS C AB <0.1 0.0 - 0.9 s/co ratio [facility] 1 Comment: Negative: < 0.8 Indeterminate: 0.8 - 0.9 Positive: > 0.9 The CDC recommends that a positive HCV antibody result be followed up with a HCV Nucleic Acid Amplification test (831938). 10/13/2020 11:0 0 AM MATERIAL CLERK 10/13/2020 Narrative [facility] - 10/14/2020 6:36 AM MATERIAL CLERK Performed at: 01 - [facility] [address] [id number] Cdc Associate: Chetan Mares PhD, Phone: [phone] us Oleg Moran MD LABORATORY Final Res ult [facility] [address] [place] [address] [facility] 1 from Last 3 Months or Most Recently Relevant to Health Maintenance Insurance Care Teams Programs Director Relationship Specialty Start Date End Date Rachael Kwong MD [address] [place] [id number] PCP - General FAMILY PRACTICE 09/12/24
[2025-02-13 13:03] LABS: Anion Gap 13 mmol/L (4-12); Blood Urea Nitrogen 21 mg/dL (7-17); Calcium 9.2 mg/dL (8.4-10.2); Carbon Dioxide 21 mmol/L (22-30); Chloride 105 mmol/L (98-107); Estimated Glomerular Filt Rate > 60; Glucose 82 mg/dL (65-110); Potassium 4.1 mmol/L (3.4-5.0); Sodium 139 mmol/L (137-145)
== END 2025-02-13 11:12 | disposition home or self-care (01) ==
LOC: ANHSURGERY 11:18
PROVIDERS: Anesthesiology; Visit Provider Obstetrics & Gynecology
DX: Z01.818 Encounter for other preprocedural examination (principal); I10 Essential (primary) hypertension
CPT/HCPCS: 36415; 80048; 93005

== ENCOUNTER 2025-02-18 00:32 | Day surgery (SDC) | payer BC, SELFPAY ==
[2025-02-09 14:26] VITALS: BMI 35.9
--- NOTE | 2025-02-09 14:35 | SUR.PREOP ---
Report to the Outpatient Waiting Room, entrance under the green pavilion located off [facility], at time _0730_ on date _02/18/25_. Planned Procedure Time: 0930 .? Time changes happen often and if your time is changed the preop area will call you the afternoon before. - You and your visitor will be asked to self-screen and do not enter if you have any COVID symptoms. Please call surgeon if you need to reschedule. - A mask is optional within the hospital at this time. Patients may have clear liquids (water, carbonated beverages, clear teas, apple juice) until 3 hours prior to surgery with a maximum of 20 ounces. - No food from midnight until time of surgery and no smoking, or chewing tobacco (or any form of nicotine). No chewing gum, candy or mints. - Infants may have breast milk until 4 hours before surgery, infant formula 6 hours prior to surgery. - Children will be allowed to drink immediately following surgery.? If applicable, please bring a bottle or sippy cup to assist with drinking. Juice, water, soda, and popsicles are readily available.? For infants on formula, please bring formula the day of surgery.? Pacifiers are allowed. Take only the following medications with a SIP of water on the morning of surgery: ___levothyroxine, control DO NOT STOP ANY OF YOUR OTHER PRESCRIPTION MEDICATIONS PRIOR TO SURGERY EXCEPT THE FOLLOWING Hold all vitamins and supplements for 3 days per anesthesiologist. Medications to discontinue per physician HCTZ morning of surgery Date to take last dose Please no make-up, nail sinhala, hairspray, perfume, deodorant, or body powder the day of surgery.? No jewelry (including any body piercings) or valuables the day of surgery, leave them at home.? Please take a shower or bath the night before, or the morning of, surgery with an antibacterial soap.? Wear comfortable, loose fitting clothing.? Children are encouraged to wear pajamas. - Jewelry must be removed prior to entering the operating room.? Rings and piercings that are not removed may be cut off. - The hospital will not accept responsibility for valuables.? - Please leave all valuables, including medications, at home the day of surgery. If you are going home after surgery, a licensed pile driver operator must drive you home.? - NO public transportation without another adult if you receive anesthesia. - We recommend that an adult stay with you for 24 hours following discharge. - We also recommend that you do not drive, make important decision, drink alcoholic beverages, or take any drugs that were not prescribed by your health care provider for at least 24 hours after your discharge time. For Pediatric surgeries, we recommend two adults accompany the child home. Follow any additional instructions given to you from your surgeon. Telephone instructions given to __patient__and asked if any additional questions and then verbalized understanding. Patient advised to call surgeon office or pre surgery nurse liaison [phone] if any additional questions.
[2025-02-18] VITALS (8 sets, daily range): BP systolic 102–142; BP diastolic 63–90; PULSE 68–84; RESP 10–16; TEMP 36.1–36.4; O2SAT 100; BMI 35.5
--- OUTSIDE RECORDS SUMMARY | 2025-02-18 00:34 | XMS_ITS | Clinical Summary ---
Author Organization [facility] Address [address] [place] [address] Care Team Providers Care Grey Iron Molder Name Role Phone Rachael Kwong MD Primary [...] CDT Respiratory Rate 16 10/03/2022 8:36 AM DOUBLE END CHUCKING MACHINE OPERATOR Oxygen Saturation 100% 06/03/2024 8:09 AM CDT Inhaled Oxygen Concentration - - Weight 101.2 kg (223 lb) 06/03/2024 8:09 AM CDT Height 172.7 cm (5' 8 ) 06/03/2024 8:09 AM CDT Body Mass Index 33.91 06/03/2024 8:09 AM CDT Plan of Treatment Upcoming Encounters Date Type Department Care Team (Late st Contact Info) Description 06/04/2025 7:00 AM CDT Office Visit [facility] Medical Group [facility] Medicine [address] [address] Oleg Moran MD Health Maintenance [...] Cancer Screening with HPV 09/27/2024 PHQ-2 (Physician [place]) 11/26/2024 06/03/2024 Annual Physical 06/03/2025 06/03/2024, 1106/2022, [...] HEPATITIS C ANTIBODY Routine 10/13/2020 11:00 AM DOUBLE END CHUCKING MACHINE OPERATOR Need for hepatitis C screening test from Last 3 Months or Most Recently Relevant to Health Maintenance Results * MAMMOGRAM (12/19/2021) Anatomical Region Laterality Modality Other us [facility] Scanned SCANNING Final Resu lt * PAP SMEAR (09/27/2021) 09/27/2021 us [facility] Scanned SCANNING Final Resu lt * HEPATITIS C ANTIBODY (10/13/2020 11:00 AM DOUBLE END CHUCKING MACHINE OPERATOR) HEPATITIS C AB <0.1 0.0 - 0.9 s/co ratio [facility] 1 Comment: Negative: < 0.8 Indeterminate: 0.8 - 0.9 Positive: > 0.9 The CDC recommends that a positive HCV antibody result be followed up with a HCV Nucleic Acid Amplification test (647135). 10/13/2020 11:0 0 AM DOUBLE END CHUCKING MACHINE OPERATOR 10/13/2020 Narrative [facility] - 10/14/2020 6:36 AM DOUBLE END CHUCKING MACHINE OPERATOR Performed at: 01 - [facility] [address] [id number] Plant Technician/Control Room Operator: Chetan Mares PhD, Phone: [phone] us Oleg Moran MD LABORATORY Final Res ult [facility] [address] [place] [address] [facility] 1 from Last 3 Months or Most Recently Relevant to Health Maintenance Insurance Care Teams Grey Iron Molder Relationship Specialty Start Date End Date Rachael Kwong MD [address] [place] [id number] PCP - General FAMILY PRACTICE 09/12/24
--- OUTSIDE RECORDS SUMMARY | 2025-02-18 00:34 | XMS_ITS | Clinical Summary ---
Author Organization [facility] Address [address] [place] [address] Care Team Providers Care Turfgrass Technician Name Role Phone Fuad Torres MD Unavailable [phone] Radha Tejada [facility] Primary Care Provi vicki Allergies No known [...] 10/10/2024 Assessment & Plan (10/13/2024 10:28 AM OUTBOUND SALES PROFESSIONAL): Your BMI is elevated. Try to cut back on calories. Most people should eat between 4226-9408 calories to lose weight. Goal BMI is less than 30. A healthy BMI is considered between 19-25. Decrease your carbohydrate intake to less than 150 grams per day if possible and increase protein to help with hunger. Increase activity to 30 min 4-5 days a week of moderate aerobic activity and add strength training 2 times weekly, as tolerated. Consider using [employer] kiley to track diet and exercise habits daily. Consider trying Weight Watcher program to make dietary changes. Visit www.dietaryguidelines.gov, www.myplate.gov, or www.health.gov for more dietary information and tips. If you need further help with weight loss please let me know. I would be happy to help. Chronic constipation 09/05/2019 Assessment & Plan (10/13/2024 10:26 AM OUTBOUND SALES PROFESSIONAL): Chronic and stable Continue [id number] medications as needed Essential hypertension 09/05/2019 Assessment & Plan (01/21/2025 12:06 PM OUTBOUND SALES PROFESSIONAL): Chronic and stable Continue hydrochlorothiazide 12.5 mg daily Goal blood pressure is less than 140/90. Recommend DASH diet to reduce sodium/salt in diet. Recommend 150 min of moderate aerobic exercise weekly as tolerated. Visit www.heart.org for more information on diet and lifestyle to improve blood pressure for heart health. F/u in 4 months Assessment & Plan (10/13/2024 10:28 AM OUTBOUND SALES PROFESSIONAL): Chronic and stable Start hydrochlorothiazide 12.5 mg [...] 05/07/2019 Assessment & Plan (01/21/2025 12:07 PM OUTBOUND SALES PROFESSIONAL): Chronic and stable Continue Levothyroxine 50 mcg Follow-up in 4 months Assessment & Plan (10/13/2024 10:28 AM OUTBOUND SALES PROFESSIONAL): Levothyroxine 50 mcg ordered Labs ordered Follow-up in 1 month Encounters Date Type Department Care Team Description 01/21/2025 11:30 AM OUTBOUND SALES PROFESSIONAL Office Visit [address] [phone] Radha Tejada DNP Essential hypertension (Primary Dx); Hypothyroidism (acquired); Encounter for vitamin deficiency screening; Class 2 obesity due to excess calories without serious comorbidity with body mass index (BMI) of 36.0 to 36.9 in adult; Encounter for long-term (current) use of medications 01/19/2025 Results Follow-Up [address] [phone] Radha Tejada DNP 01/19/2025 Results Follow-Up [address] [phone] Radha Tejada DNP 01/17/2025 8:00 AM OUTBOUND SALES PROFESSIONAL - 01/17/2025 11:59 PM OUTBOUND SALES PROFESSIONAL Hospital Encounter [facility] Breast Imaging [address] [place] [address] Screening mammogram, encounter for Discharge Disposition: Discharge to home or self care 01/17/2025 7:30 AM OUTBOUND SALES PROFESSIONAL Lab [facility] Lab [address] [place] [id number] Hypothyroidism (acquired) from Last 3 Months Immunizations [...] on file Legal Sex Female 6:17 PM OUTBOUND SALES PROFESSIONAL Gender Identity Female 01/08/2024 6:23 AM OUTBOUND SALES PROFESSIONAL Sexual Orientation Not on file Obstetrics History Para Term AB IAB SAB Ectopic Multiple Livin g Live Births 0 0 0 0 0 0 0 0 0 0 0 Last Filed Vital Signs Vital Sign Reading Time Taken Comments Blood Pressure 122/80 01/21/2025 11:20 AM OUTBOUND SALES PROFESSIONAL Pulse 96 01/21/2025 11:20 AM OUTBOUND SALES PROFESSIONAL Temperature 36.8 C (98.2 F) 10/10/2024 11:29 AM OUTBOUND SALES PROFESSIONAL Respiratory Rate 18 01/21/2025 11:20 AM OUTBOUND SALES PROFESSIONAL Oxygen Saturation 99% 01/21/2025 11:20 AM OUTBOUND SALES PROFESSIONAL Inhaled Oxygen Concentration - - Weight 112.5 kg (248 lb) 01/21/2025 11:20 AM OUTBOUND SALES PROFESSIONAL Height 175.3 cm (5' 9 ) 01/21/2025 11:20 AM OUTBOUND SALES PROFESSIONAL Body Mass Index 36.62 01/21/2025 11:20 AM OUTBOUND SALES PROFESSIONAL Plan of Treatment Health Maintenance Due Date [...] Diagnosis Comments TSH Routine 01/17/2025 9:04 AM OUTBOUND SALES PROFESSIONAL Hypothyroidism (acquired) T4, FREE Routine 01/17/2025 9:04 AM OUTBOUND SALES PROFESSIONAL Hypothyroidism (acquired) SCREENING MAMMOGRAM BILATERAL W VALERIO Schedule Routine, Read Routine (OP Routine) 01/17/2025 8:10 AM OUTBOUND SALES PROFESSIONAL Screening mammogram, encounter for from Last 3 Months Results * TSH (01/17/2025 9:04 AM OUTBOUND SALES PROFESSIONAL) Thyroid Stimulating Hormone 2.07 0.30 - 4.20 mcIUnit/mL Blood 01/17/2025 9:04 AM OUTBOUND SALES PROFESSIONAL 01/17/2025 9:36 AM OUTBOUND SALES PROFESSIONAL us Radha Tejada [facility] LAB BLOOD ORDERABLE S Final Result SARAIEJN [address] [facility] Department [place] [address] * T4, free (01/17/2025 9:04 AM OUTBOUND SALES PROFESSIONAL) Free T4 1.29 0.90 - 1.70 ng/dL Blood 01/17/2025 9:04 AM OUTBOUND SALES PROFESSIONAL 01/17/2025 9:36 AM OUTBOUND SALES PROFESSIONAL us Radha Tejada DNP LAB BLOOD ORDERABLE S Final Result ALVIN [address] [facility] Department [place] [address] * Screening Mammogram Bilateral W Valerio (01/17/2025 8:10 AM OUTBOUND SALES PROFESSIONAL) Anatomical Region Laterality Modality Breast Bilateral Mammography Impressions 01/19/2025 8:01 AM OUTBOUND SALES PROFESSIONAL BI-RADS ATLAS category (overall): 2 - Benign There is no mammographic evidence of malignancy. A 1 year screening mammogram is recommended. The patient has been or will be contacted. We recommend annual screening mammography for women at average risk of breast cancer beginning at age 40, based on guidelines of the [employer] (ACR Practice Parameter for the Performance of Screening and Diagnostic Mammography) and [employer]. For women with and elevated risk of breast cancer, please refer to the ACR Practice Parameter for specific screening recommendations. The patient will be entered into a reminder system with a target due date of 1 year for her next screening exam. Narrative 01/19/2025 8:01 AM OUTBOUND SALES PROFESSIONAL Screening Mammogram Bilateral W Valerio: 01/17/25 The [...] nal Result from Last 3 Months Insurance [facility] Care Teams Turfgrass Technician Relationship Specialty Start Date End Date Fuad Torres MD [address] [address] PCP - exhibit builder Obstetrics and Gynecology 12/13/22 Radha Tejada DNP [address] [facility] [address] [address] PCP - General Family Medicine 10/10/24
--- OUTSIDE RECORDS SUMMARY | 2025-02-18 00:34 | XMS_ITS | Encounter Summary ---
Author Organization [facility] Address [address] [place] [address] Care Team Providers Care Moving Picture Producer Name Role Phone Fuad Torres MD Unavailable [phone] Radha Tejada DNP Primary Care Provi vicki Encounter Details Date Type Department Care Team (Late st Contact Info) Description 01/19/2025 Results Follow-Up [facility] Family Medicine [address] [place] [address] [place] [phone] [address] Social History Tobacco Use Types [...] on file Legal Sex Female 6:17 PM TECHNOLOGY PROJECT MANAGER Gender Identity Female 01/08/2024 6:23 AM TECHNOLOGY PROJECT MANAGER Sexual Orientation Not on file documented as of this encounter Plan of Treatment Not on file documented as of this encounter Visit Diagnoses Not on filedocumented in this encounter Care Teams Moving Picture Producer Relationship Specialty Start Date End Date Fuad Torres MD [address] [facility] [address] [address] PCP - duct layer helper Obstetrics and Gynecology 12/13/22 Radha Tejada DNP [address] [facility] [address] [place] [address] [place] [address] PCP - General Family Medicine 10/10/24 documented as of this encounter
--- OUTSIDE RECORDS SUMMARY | 2025-02-18 00:34 | XMS_ITS | Referral Summary ---
Author Organization [facility] Address [address] [place] [address] Care Team Providers Care Stator Winder Name Role Phone Fuad Torres MD Unavailable [phone] Radha Tejada DNP Primary Care Provi vicki Encounters Date Type Department Care Team Description 01/21/2025 11:30 AM MATHEMATICIAN RESEARCH Office Visit [address] [place] [phone] Radha Tejada DNP Essential hypertension (Primary Dx); Hypothyroidism (acquired); Encounter for vitamin deficiency screening; Class 2 obesity due to excess calories without serious comorbidity with body mass index (BMI) of 36.0 to 36.9 in adult; Encounter for long-term (current) use of medications 01/19/2025 Results Follow-Up [address] [place] [phone] Radha Tejada DNP 01/19/2025 Results Follow-Up [address] [place] [phone] Radha Tejada DNP 01/17/2025 7:30 AM MATHEMATICIAN RESEARCH Lab [facility] Lab [address] [place] [address] Hypothyroidism (acquired) 01/17/2025 8:00 AM MATHEMATICIAN RESEARCH - 01/17/2025 11:59 PM MATHEMATICIAN RESEARCH Hospital Encounter [facility] Breast Imaging [address] [place] [address] Screening mammogram, encounter for Discharge Disposition: Discharge [...] 10/10/2024 Assessment & Plan (10/13/2024 10:28 AM MATHEMATICIAN RESEARCH): Your BMI is elevated. Try to cut back on calories. Most people should eat between 1257-2545 calories to lose weight. Goal BMI is less than 30. A healthy BMI is considered between 19-25. Decrease your carbohydrate intake to less than 150 grams per day if possible and increase protein to help with hunger. Increase activity to 30 min 4-5 days a week of moderate aerobic activity and add strength training 2 times weekly, as tolerated. Consider using [employer] kiley to track diet and exercise habits daily. Consider trying Weight Watcher program to make dietary changes. Visit www.dietaryguidelines.gov, www.myplate.gov, or www.health.gov for more dietary information and tips. If you need further help with weight loss please let me know. I would be happy to help. Chronic constipation 09/05/2019 Assessment & Plan (10/13/2024 10:26 AM MATHEMATICIAN RESEARCH): Chronic and stable Continue [id number] medications as needed Essential hypertension 09/05/2019 Assessment & Plan (01/21/2025 12:06 PM MATHEMATICIAN RESEARCH): Chronic and stable Continue hydrochlorothiazide 12.5 mg daily Goal blood pressure is less than 140/90. Recommend DASH diet to reduce sodium/salt in diet. Recommend 150 min of moderate aerobic exercise weekly as tolerated. Visit www.heart.org for more information on diet and lifestyle to improve blood pressure for heart health. F/u in 4 months Assessment & Plan (10/13/2024 10:28 AM MATHEMATICIAN RESEARCH): Chronic and stable Start hydrochlorothiazide 12.5 mg [...] 05/07/2019 Assessment & Plan (01/21/2025 12:07 PM MATHEMATICIAN RESEARCH): Chronic and stable Continue Levothyroxine 50 mcg Follow-up in 4 months Assessment & Plan (10/13/2024 10:28 AM MATHEMATICIAN RESEARCH): Levothyroxine 50 mcg ordered Labs ordered Follow-up [...] on file Legal Sex Female 6:17 PM MATHEMATICIAN RESEARCH Gender Identity Female 01/08/2024 6:23 AM MATHEMATICIAN RESEARCH Sexual Orientation Not on file Last Filed Vital Signs Vital Sign Reading Time Taken Comments Blood Pressure 122/80 01/21/2025 11:20 AM MATHEMATICIAN RESEARCH Pulse 96 01/21/2025 11:20 AM MATHEMATICIAN RESEARCH Temperature 36.8 C (98.2 F) 10/10/2024 11:29 AM MATHEMATICIAN RESEARCH Respiratory Rate 18 01/21/2025 11:20 AM MATHEMATICIAN RESEARCH Oxygen Saturation 99% 01/21/2025 11:20 AM MATHEMATICIAN RESEARCH Inhaled Oxygen Concentration - - Weight 112.5 kg (248 lb) 01/21/2025 11:20 AM MATHEMATICIAN RESEARCH Height 175.3 cm (5' 9 ) 01/21/2025 11:20 AM MATHEMATICIAN RESEARCH Body Mass Index 36.62 01/21/2025 11:20 AM MATHEMATICIAN RESEARCH Plan of Treatment Not on file Procedures Procedure Name Priority Date/Time Associated Diagnosis Comments TSH Routine 01/17/2025 9:04 AM MATHEMATICIAN RESEARCH Hypothyroidism (acquired) T4, FREE Routine 01/17/2025 9:04 AM MATHEMATICIAN RESEARCH Hypothyroidism (acquired) SCREENING MAMMOGRAM BILATERAL W VALERIO Schedule Routine, Read Routine (OP Routine) 01/17/2025 8:10 AM MATHEMATICIAN RESEARCH Screening mammogram, encounter for from Last 3 Months Results * TSH (01/17/2025 9:04 AM MATHEMATICIAN RESEARCH) Thyroid Stimulating Hormone 2.07 0.30 - 4.20 mcIUnit/mL Blood 01/17/2025 9:04 AM MATHEMATICIAN RESEARCH 01/17/2025 9:36 AM MATHEMATICIAN RESEARCH [facility] Final Result Performing Organization Address City/[facility] Co de Phone Number ALVIN [address] [place] [address] * T4, free (01/17/2025 9:04 AM MATHEMATICIAN RESEARCH) Free T4 1.29 0.90 - 1.70 ng/dL Blood 01/17/2025 9:04 AM MATHEMATICIAN RESEARCH 01/17/2025 9:36 AM MATHEMATICIAN RESEARCH [facility] S Final Result Performing Organization Address [facility] de Phone Number SARAI[address] [place] [address] * Screening Mammogram Bilateral W Valerio (01/17/2025 8:10 AM MATHEMATICIAN RESEARCH) Anatomical Region Laterality Modality Breast Bilateral Mammography Impressions 01/19/2025 8:01 AM MATHEMATICIAN RESEARCH BI-RADS ATLAS category (overall): 2 - Benign There is no mammographic evidence of malignancy. A 1 year screening mammogram is recommended. The patient has been or will be contacted. We recommend annual screening mammography for women at average risk of breast cancer beginning at age 40, based on guidelines of the [employer] [employer] (ACR Practice Parameter for the Performance of Screening and Diagnostic Mammography) and [employer]. For women with and elevated risk of breast cancer, please refer to the ACR Practice Parameter for specific screening recommendations. The patient will be entered into a reminder system with a target due date of 1 year for her next screening exam. Narrative 01/19/2025 8:01 AM MATHEMATICIAN RESEARCH Screening Mammogram Bilateral W Valerio: 01/17/25 The [...] nal Result from Last 3 Months Insurance COUNT INCLUDES THE [facility] Care Teams Stator Winder Relationship Specialty Start Date End Date Fuad Torres MD [address] [id number] PCP - stripping machine operator Obstetrics and Gynecology 12/13/22 Radha Tejada DNP [address] [address] PCP - General Family Medicine 10/10/24
--- OUTSIDE RECORDS SUMMARY | 2025-02-18 00:34 | XMS_ITS | Encounter Summary ---
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 BIOMEDICAL ENGINEER Gender Identity Female 01/08/2024 6:23 AM BIOMEDICAL ENGINEER Sexual Orientation Not on file documented as of this encounter Plan of Treatment Not on file documented as of this encounter Visit Diagnoses Not on filedocumented in this encounter Care Teams Hostess Party Sales Representative Relationship Specialty Start Date End Date Fuad Torres MD [address] [facility] [address] [address] PCP - commercial representative Obstetrics and Gynecology 12/13/22 Radha Tejada DNP [address] [facility] [address] [place] [address] [place] [address] PCP - General Family Medicine 10/10/24 documented as of this encounter
--- NOTE | 2025-02-18 08:36 | PM.IMHP ---
H&P: [facility] History of Present Illness Date/Time: 02/18/25 08:36 Chief Complaint: Heavy prolonged bleeding Narrative: Patient is a 49 y/o with long history of prolonged irregular bleeding. She has tried multiple hormonal options without relief. She had normal endometrial biopsy and ultrasound. She has opted for endometrial ablation. She does not want to use anything for contraception and request sterilization procedure. Review of Systems Review of Systems: All systems reviewed & are unremarkable except as noted in HPI and below Cardiovascular: Cardiovascular: Reports no additional cardiovascular complaints, Denies chest pain and Denies dyspnea Respiratory: Respiratory: Reports no additional respiratory complaints and Denies dyspnea Gastrointestinal: Gastrointestinal: Reports abdominal pain, Denies change in bowel habits, Denies diarrhea, Denies nausea and Denies vomiting Genitourinary: Genitourinary: Reports pelvic pain Musculoskeletal: Musculoskeletal: Reports back pain Integumentary/Breasts: Skin/Breast: Reports system reviewed and no additional complaints, except as docu Neurologic: Reports system reviewed and no additional complaints, except as documented PMFSH Past Medical History Medical History Family history of breast cancer in mother Hypothyroidism Hypertension Surgical History Surgical History S/P bilateral breast reduction Family History Family History Other Breast cancer Hypertension Social History Social History Smoking status: Never smoker Alcohol intake: current Substance use: never Substance use type: does not use Lack of Transportation: No Lack of Food: Never True Current Housing: I Have Housing Concerned About Future Housing: No Difficulty Paying Gas/Electric Bills: No Difficulty Paying for Meds: No Currently Unemployed: No Education: Master's Degree or Higher Difficulty w/ Childcare or Family Care: No Gender identity (if verbalized by the patient): Female Meds Home Medications and Allergies Home Medications ?Medication ?Instructions ?Recorded ?Confirmed ?Type levothyroxine 50 mcg tablet 0.05 mcg PO DAILY 12/05/22 02/18/25 History norethindrone (contraceptive) 0.35 0.35 mg PO DAILY #30 tabs 01/13/25 02/09/25 Rx mg tablet hydrochlorothiazide 12.5 mg tablet 12.5 mg PO DAILY 02/09/25 02/09/25 History Allergies Allergy/AdvReac Type Severity Reaction Status Date / Time No Known Allergies Allergy Verified 02/18/25 08:35 Exam Const: Orientation/consciousness: oriented to person and oriented to place HENMT: Head: normal to inspection Eyes: General: appearance normal, both eyes and all related structures Resp: Effort & Inspection: normal respiratory effort Auscultation: clear to auscultation bilaterally Cardio: Rate: regular rate Rhythm: regular rhythm GI: Inspection: normal to inspection GI Palp: No Rebound tenderness present Neuro: General: oriented to person and oriented to place Cognition (Neuro): normal cognition Extrem: General: normal to inspection Psych: Appearance: grossly normal and well kempt Assessment and Plan Assessment and plan (1) Dysfunctional uterine bleeding: Code(s): N93.8 - Other specified abnormal uterine and vaginal bleeding Status: Acute Assessment and Plan: Will proceed with hysteroscopic endometrial ablation and laparoscopic removal of fallopian tubes for sterilization. (2) Encounter for female sterilization procedure: Code(s): Z30.2 - Encounter for sterilization Status: Acute
[2025-02-18] MEDS: LACTATED RINGERS 1,000 ML 30 ML IV CONT ×2 (08:41→11:10)
[2025-02-18] MEDS: ACETAMINOPHEN 500 MG TABLET 1000 MG PO (08:41)
--- NOTE | 2025-02-18 08:41 | WPDHPUPDATE1 ---
History and Physical Update Update Date/Time: 02/18/25 08:41 History and Physical has been reviewed, including an updated exam of the patient. There are NO changes in the patient's condition. Risks, benefits, and alternatives have been discussed and questions answered. Patient agrees to proceed with procedure.
[2025-02-18] MEDS: KETOROLAC 15 MG/ML VIAL (*BKC) IV PUSH (08:42)
[2025-02-18 08:44] LABS: BEDSIDEPREGUCG Negative (Negative)
--- NOTE | 2025-02-18 09:26 | P.PNAN_ITS ---
Anes - Initial Pre Proc Eval Procedure: Operation Date: 02/18/25 09:30 Proposed Procedures p Hysteroscopy Dilation and Curettage with Zahida Endometrial Ablation, Laparoscopic Bilateral Salpingectomy - Fuad Torres MD Date/Time: 02/18/25 09:26 Surgeon: Fuad Torres MD Pre Op Diagnosis: Menorrhagia, Desire Sterilization Patient Data Age: 49 Gender: F Height: 1.75 m Weight: 109.1 kg Last Vital Signs Temp 97.5 F L 02/18/25 08:38 Pulse 80 02/18/25 08:38 BP 142/90 H 02/18/25 08:38 Pulse Ox 100 02/18/25 08:38 O2 Del Method Room Air 02/18/25 08:38 Allergies Allergy/AdvReac Type Severity Reaction Status Date / Time No Known Allergies Allergy Verified 02/18/25 08:35 Home Medications ?Medication ?Instructions ?Recorded ?Confirmed ?Type levothyroxine 50 mcg tablet 0.05 mcg PO DAILY 12/05/22 02/18/25 History norethindrone (contraceptive) 0.35 0.35 mg PO DAILY #30 tabs 01/13/25 02/09/25 Rx mg tablet hydrochlorothiazide 12.5 mg tablet 12.5 mg PO DAILY 02/09/25 02/09/25 History Laboratory Tests 02/18/25 08:38 POC Urine HCG, Qual Negative (Negative) Patient hx anesthesia problems: none Family hx anesthesia problems: none Results Review: All pre-operative results and documents have been reviewed as part of the pre- operative evaluation. [facility] Past Medical History Medical History Family history of breast cancer in mother Hypothyroidism Hypertension Surgical History Surgical History S/P bilateral breast reduction Family History Family History Other Breast cancer Hypertension Social History Social History Smoking status: Never smoker Alcohol intake: current Substance use: never Substance use type: does not use Lack of Transportation: No Lack of Food: Never True Current Housing: I Have Housing Concerned About Future Housing: No Difficulty Paying Gas/Electric Bills: No Difficulty Paying for Meds: No Currently Unemployed: No Education: Master's Degree or Higher Difficulty w/ Childcare or Family Care: No Gender identity (if verbalized by the patient): Female Gina - Reyna Final PreProcedure Day of Procedure 02/18/25 09:26 Patient weight: obese Heart: regular rate and rhythm Lungs: clear to auscultation Airway: Mallampati scale class II Neurological: alert and oriented Last oral intake: >/= 8 hours ASA classification: III Emergent: no Anesthetic plan: proceed Anesthesia type and monitoring: general ETT and standard monitoring Results Review: All pre-operative results and documents have been reviewed as part of the pre- operative evaluation. Informed Consent: The patient's anesthetic plan and its attendant risks and benefits were discussed with the patient/family/POA. Questions were solicited and answers provided to the satisfaction of the patient/family/POA.
[2025-02-18] MEDS: BUPivacaine HCL 0.5% PF 30 ML VIAL INFILTRATE (09:38)
[2025-02-18] MEDS: ceFAZolin 2 GM/D5W 50 ML 2 GM/50 ML BAG IVPB (09:38)
--- NOTE | 2025-02-18 11:06 | P.OP_ITS ---
Procedure Note - Detailed Date of Procedure 02/18/25 Pre-op Diagnosis Menorrhagia, Desire Sterilization Post-op Diagnosis Same Procedure Performed 1. Laparoscopic bilateral salpingectomy 2. Zahida endometrial ablation with hysteroscopy. Surgeon Fuad Torres MD Anesthesia General Indications Heavy periods without relief from hormonal options and undesired fertility, request sterilization. Findings Uterus normal, fallopian tubes and ovaries normal bilaterally, engorged pelvic vessels. Uterus sound to 10cm, cervical [id number], uterine length 5cm. Eschar noted post ablation. Description of Procedure After informed consent was obtained patient was taken to the operating room and general endotracheal anesthesia was administered. She was placed in low lithotomy need prep prepped sterile fashion. Attention was turned to the vagina speculum inserted single-tooth tenaculum placed on anterior lip of the cervix. [place] uterine manipulator placed into the cervical canal. The speculum was removed. Attention was then turned to the abdomen. A vertical incision was made at the umbilicus and a Veress needle was inserted. Peritoneal pressures were 10-13mmhg. The Veress removed and inserted again, peritoneal pressures above 10. Needle removed. Decision made to open with hysson. The s retractors were used and fascia grasped and incised. Omental tissue palpated. No adhesions palpated. 0 vicryl was used. The hysson port inserted and secured with the O vicryl. A pneumoperitoneum of 15 mm per mercury was obtained. Patient was placed in Trendelenburg position. Attention was turned to the left side of the abdomen and a 5 mm port was inserted under laparoscopic visualization. The pelvic organs were visualized. Attention was turned to the right side of the abdomen and another 5 mm port was inserted under laparoscopic visualization. Using the LigaSure the right fallopian tube was excised to near the entrance to the uterus. This was removed through the port. Attention was then turned to the left fallopian tube which was grabbed at the distal end and cauterized from the mesial salpinx to within a cm of the entrance to the entrance to the uterus. The fallopian tube was removed through the 5 mm port. Hemostasis was noted at both sites. Patient was taken out of Trendelenburg position the pneumoperitoneum was released. The fascia was closed with an additional O vicryl and the skin incisions were closed in a subcuticular fashion with 4 O Vicryl. [place] manipulator removed. Speculum was inserted. The uterus was sounded to 10 cm. The cervix was dilated to an 4 Rodriguez dilator. The cervical length was 5 cm . The hysteroscope was inserted into the cavity. No lesions noted. The hysteroscope was removed. The Zahida ablation instrument was inserted into the cavity. Cavity assessment was performed and confirmed intact. The ablation was enabled. After 120 seconds the Zahida stopped. The ablation instrument was removed. The hysteroscope was inserted and there was noted eschar with the cavity. The hysteroscope was removed the single-tooth tenaculum was removed hemostasis was noted at the tenaculum site. Sponge count correct. The patient taken to recovery in stable condition. Pathology Yes (right and left fallopian tubes and ovaries) Complications No immediate complications Condition Stable Disposition Same day [facility] Billing Surgery - Charge Forward: Surgery Billing
[2025-02-18] MEDS: fentaNYL CITRATE INJ (*CRX) 100 MCG/2 ML VIAL 25 MCG IV PUSH ×6 (11:16→11:45)
[2025-02-18] MEDS: oxyCODONE HCL (*CRX) 5 MG TAB IR PO (12:24)
== END 2025-02-18 13:18 | disposition home or self-care (01) ==
PROVIDERS: Visit Provider Obstetrics & Gynecology
PROC: 0UDB8ZZ Extraction of Endometrium, Via Natural or Artificial Opening Endoscopic (ICD-10-PCS; CPT 58558; principal; 2025-02-18 09:30)
DX: Z30.2 Encounter for sterilization (principal); G89.18 Other acute postprocedural pain; E03.9 Hypothyroidism, unspecified; I10 Essential (primary) hypertension; E66.9 Obesity, unspecified; Z68.35 Body mass index [BMI] 35.0-35.9, adult; Z98.890 Other specified postprocedural states; Z80.3 Family history of malignant neoplasm of breast
CPT/HCPCS: 58661; 58563; 88302; A9270; J0690; J1100; J1885; J2003; J2250; J2405; J2704; J3010; J7030; J7120